=== PATIENT | female | born 1965 | race Two or more races ===

== ENCOUNTER 2024-07-20 19:29 | Emergency (ER) | payer MEDICAID ==
[~2024-07-20] VITALS: Ht 162.6 cm; Wt 63.2 kg
[2024-07-20 19:41] VITALS: BP 123/82; PULSE 77; RESP 17; TEMP 98.1; O2SAT 98
[2024-07-20 20:47] LABS: Basophils # (auto) 0 10 ^3/uL (0-0.2); Basophils % (auto) 0.7 % (0.0-2.0); Eosinophils # (auto) 0.5 10 ^3/uL (0-0.8); Eosinophils % (auto) 9.7 % (0.0-7.0); Hematocrit 39.2 % (36.0-46.0); Hemoglobin 13.1 g/dL (12.2-16.2); Lymphocytes # (auto) 1.5 10 ^3/uL (0.4-5.4); Lymphocytes % (auto) 32.2 % (10.0-50.0); Mean Corpuscular Hemoglobin 31.1 pg (28.0-32.0); Mean Corpuscular Hgb Conc. 33.4 g/dL (32.0-36.0); Mean Corpuscular Volume 93.3 fL (80.0-100.0); Monocytes # (auto) 0.3 10 ^3/uL (0-1.3); Monocytes % (auto) 6.5 % (0.0-12.0); Neutrophils # (auto) 2.4 10 ^3/uL (1.6-8.6); Neutrophils % (auto) 50.9 % (37.0-80.0); Nucleated Red Blood Cells % 0.3 %; Platelet Count (auto) 260 10^3/uL (140-450); Red Blood Cells 4.21 10^6/uL (4.0-5.20); Red Cell Distribution Width 13.2 % (11.8-14.3); White Blood Cell 4.7 10^3/uL (4.4-10.8)
[2024-07-20 20:56] LABS: Potassium 4.1 mmol/L (3.5-5.1); Sodium 143 mmol/L (136-145)
[2024-07-20 20:57] LABS: Anion Gap 6 (5-15); Calcium 9.6 mg/dL (8.7-10.4); Carbon Dioxide 27 mmol/L (20-31)
[2024-07-20 21:02] LABS: BUN/Creatinine Ratio 17.9 (10.0-20.0); Blood Urea Nitrogen 14 mg/dL (9-23); Glucose 91 mg/dL (74-106)
[2024-07-20 21:18] LABS: Chloride 110 mmol/L (98-107)
--- NOTE | 2024-07-20 21:26 | ED.PDOC ---
History of Present Illness HPI Comments 59 year old female presents to the ED with a chief complaint of blood in urine onset today. Patient states she experienced 3 episodes of dark brown/dark red blood in urine. She has also been experiencing burning sensation with urination, LLQ pain, pelvic cramping and headache. Denies chest pain, shortness of breath, fevers, chills, nausea, vomiting, diarrhea, dizziness. No other symptoms or modifying factors present at this time. Chief Complaint: Vaginal Bleed Time Seen by MD: 21:15 Reviewed Notes: Medications, Allergies Allergies: Coded Allergies: NO KNOWN ALLERGIES (Unverified , 07/20/24) Home Meds Active Scripts Sulfamethoxazole W/Trimethopri (Bactrim Ds Tablet) 1 Tab Tb, 1 TAB PO BID for 7 Days, #14 TAB Prov:WALKER CHAVEZ MD 07/21/24 Information Source: Patient Mode of Arrival: Ambulatory Severity: Moderate Timing: Hours Duration: Since onset Prehospital treatment: None Past Medical History PAST MEDICAL HISTORY: Denies Surgical History: Hysterectomy [employer] History: No Pertinent [employer] History Family History Family History: Reviewed,noncontributory to illness, No family hx of Cancer, No family hx of DM, No family hx of Heart hudson, No family hx of HTN, No family hx ofKidney hudson, No family hx of Liver hudson, No family hx of Lung hudson, No family hx of Stroke Social History Smoker: Non-Smoker Alcohol: Denies ETOH Use Drugs: Denies Drug Use Lives In: Home Constitutional: denies: chills, diaphoresis, fatigue, fever, malaise, sweats, weakness, others EENTM: denies: blurred vision, double vision, ear bleeding, ear discharge, ear drainage, ear pain, ear ringing, eye pain, eye redness, hearing loss, mouth pain, mouth swelling, nasal discharge, nose bleeding, nose congestion, nose pain, photophobia, tearing, throat pain, throat swelling, voice changes, others Respiratory: denies: cough, hemoptysis, orthopnea, SOB at rest, shortness of breath, SOB with excertion, stridor, wheezing, others Cardiovascular: denies: chest pain, dizzy spells, diaphoresis, Dyspnea on exertion, edema, irregular heart beat, left arm pain, lightheadedness, palpitations, PND, syncope, others Gastrointestinal: reports: abdominal pain; denies: abdomen distended, blood streaked bowels, constipated, diarrhea, dysphagia, difficulty swallowing, hematemesis, melena, nausea, poor appetite, poor fluid intake, rectal bleeding, rectal pain, vomiting, others Genitourinary: reports: abnormal vagina bleeding; denies: burning, dyspareunia, dysuria, flank pain, frequency, hematuria, incontinence, pain, , vagina discharge, urgency, others Neurological: reports: headache; denies: dizziness, fainting, left sided numbness, left sided weakness, numbness, paresthesia, pre-existing deficit, right sided numbness, right sided weakness, seizure, speech problems, tingling, tremors, weakness, others Musculoskeletal: denies: back pain, gout, joint pain, joint swelling, muscle pain, muscle stiffness, neck pain, others Integumetry: denies: bruises, change in color, change in hair/nails, dryness, laceration, lesions, lumps, rash, wounds, others Allergic/Immunocompromised: denies: Difficulty Healing, Frequent Infections, Hives, Itching, others Hematologic/Lymphatic: denies: anemia, blood clots, easy bleeding, easy bruising, swollen glands, others Endocrine: denies: excessive hunger, excessive sweating, excessive thirst, excessive urination, flushing, intolerance to cold, intolerance to heat, unexplained weight gain, unexplained weight loss, others Psychiatric: denies: anxiety, bipolar disorder, depression, hopeless, panic disorder, schizophrenia, sleepless, suicidal, others All Other Systems: Reviewed and Negative Physical Exam General Appearance: No Apparent Distress, Normal HEENT: Normal ENT Inspection, Pharynx Normal, TMs Normal Neck: Full Range of Motion, Non-Tender, Normal, Normal Inspection Respiratory: Chest Non-Tender, Lungs Clear, No Accessory Muscle Use, No Respiratory Distress, Normal Breath Sounds Cardiovascular: No Edema, No JVD, No Murmur, No Gallop, Normal Peripheral Pulses, Regular Rate/Rhythm Breast Exam: Deferred Gastrointestinal: No Organomegaly, Non Tender, No Pulsatile Mass, Normal Bowel Sounds, Soft Genitalia: Deferred Pelvic: Deferred Rectal: Deferred Extremities: No calf tenderness, Normal capillary refill, Normal inspection, Normal range of motion, Non-tender, No pedal edema Musculoskeletal : Apperance: Normal Neurologic: Alert, framing carpenter II-XII nml as Tested, No Motor Deficits, Normal Affect, Normal Mood, No Sensory Deficits Cerebellar Function: Normal Reflexes: Normal Skin: Dry, Normal Color, Warm Lymphatic: No Adenopathy Was a procedure done? Was a procedure done?: No Differential Dx Considerations may include: Differential diagnosis includes but is not limited to: ureteral colic / stone, Aortic aneurysm or dissection, pyelonephritis, acute renal failure, musculoskeletal etiology and others X-Ray, Labs, Meds, VS Vital Signs Date Time Temp Pulse Resp B/P (MAP) Pulse Ox O2 Delivery O2 Flow Rate FiO2 07/20/24 19:41 98.1 77 17 123/82 (96) 98 98.1 Lab Test 07/20/24 20:37 Range/Units White Blood Count 4.7 4.4-10.8 10^3/uL Red Blood Count 4.21 4.0-5.20 10^6/uL Hemoglobin 13.1 12.2-16.2 g/dL Hematocrit 39.2 36.0-46.0 % Mean Corpuscular Volume 93.3 80.0-100.0 fL Mean Corpuscular Hemoglobin 31.1 28.0-32.0 pg Mean Corpuscular Hemoglobin Concent 33.4 32.0-36.0 g/dL Red Cell Distribution Width 13.2 11.8-14.3 % Platelet Count 260 140-450 10^3/uL Mean Platelet Volume 7.1 6.9-10.8 fL Neutrophils (%) (Auto) 50.9 37.0-80.0 % Lymphocytes (%) (Auto) 32.2 10.0-50.0 % Monocytes (%) (Auto) 6.5 0.0-12.0 % Eosinophils (%) (Auto) 9.7 H 0.0-7.0 % Basophils (%) (Auto) 0.7 0.0-2.0 % Neutrophils # (Auto) 2.4 1.6-8.6 10 ^3/uL Lymphocytes # (Auto) 1.5 0.4-5.4 10 ^3/uL Monocytes # (Auto) 0.3 0-1.3 10 ^3/uL Eosinophils # (Auto) 0.5 0-0.8 10 ^3/uL Basophils # (Auto) 0 0-0.2 10 ^3/uL Nucleated Red Blood Cells 0.3 % Prothrombin Time 10.2 9.3-11.8 sec Prothrombin Time INR 0.96 0.9-1.15 Activated Partial Thromboplast Time 26.2 24.5-34.5 SEC Sodium Level 143 136-145 mmol/L Potassium Level 4.1 3.5-5.1 mmol/L Chloride Level 110 H 98-107 mmol/L Carbon Dioxide Level 27 20-31 mmol/L Anion Gap 6 5-15 Blood Urea Nitrogen 14 9-23 mg/dL Creatinine 0.78 0.550-1.02 mg/dL Glomerular Filtration Rate Calc 89 >90 mL/min BUN/Creatinine Ratio 17.9 10.0-20.0 Serum Glucose 91 74-106 mg/dL Calcium Level 9.6 8.7-10.4 mg/dL Time of 1ST Reevaluation: 21:45 Reevaluation 1ST: Unchanged Patient Education/Counseling: Diagnosis, Treatment, Prognosis Family Education/Counseling: No Family Present Additional Information The following tests were ordered, and results were reviewed by me: CBC, PTPTT, UA, BMP I discussed treatment and results with medical personnel and: Patient Comprehensive systems review obtained and negative except for what is stated in the HPI. Departure 1 Departure Time of Disposition: 23:30 Impression: Primary Impression: Acute UTI (urinary tract infection) Additional Impression: Hematuria Disposition: 01 HOME / SELF CARE / HOMELESS Condition: Stable e-Prescriptions Sulfamethoxazole W/Trimethopri (Bactrim Ds Tablet) 1 Tab Tb 1 TAB PO BID for 7 Days, #14 TAB Prov: WALKER CHAVEZ MD 07/21/24 Discharged With: Self Critical Care Note Critical Care Time?: No Stability Stability form required: No Heart Score Heart Score: Heart Score Response (Comments) Value History N/A 0 EKG N/A 0 Age N/A 0 Risk Factors N/A 0 Troponin N/A 0 Total 0 I personally scribed for WALKER CHAVEZ MD ([email or web address]) on 07/20/24 at 21:26. Electronically submitted by Joanna Nicole ([email or web address]). I personally scribed for WALKER CHAVEZ MD ([email or web address]) on 07/20/24 at 22:00. Electronically submitted by Joanna Nicole ([email or web address]). WALKER CHAVEZ MD Jul 20, 2024 21:26
[2024-07-20 21:27] LABS: INR 0.96 (0.9-1.15); Partial Thromboplastin Time 26.2 SEC (24.5-34.5); Prothrombin Time 10.2 sec (9.3-11.8)
[2024-07-21] MEDS ORDERED: BACDST PO (00:19)
[2024-07-21] MEDS ORDERED: cefTRIAXone W LIDOCAINE 1 GM IM IM ONE (00:30)
== END 2024-07-21 00:26 | disposition home or self-care (01) ==
LOC: ER 19:29
DX: N39.0 Urinary tract infection, site not specified (principal); R31.9 Hematuria, unspecified; Z90.710 Acquired absence of both cervix and uterus
CPT/HCPCS: 36415; 80048; 85025; 85610; 85730; J0696